=== PATIENT | female | born 1960 | race Two or more races ===

== ENCOUNTER 2025-03-31 05:23 | Day surgery (SDC) | payer OTHER ==
[2025-03-25 12:41] VITALS: BP 119/75
[~2025-03-31] VITALS: Ht 167.6 cm; Wt 63.0 kg
[~2025-03-31 05:23] MED LIST: CLONAZEPAM2 MG PO; ELIQUIS5 MG PO; HORIZANT300 MG PO; LIPITOR40 M1 PO; TOPROL XL50 M1 PO; ZETIA10 MG PO
[2025-03-31] MEDS ORDERED: METRONIDAZOLE/SODIUM CHLORIDE 500 MG/100 ML PIGGYBACK IV ONE (06:53)
[2025-03-31] MEDS ORDERED: DIBUCAINE 30 GM TUBE ONE (07:45)
[2025-03-31] MEDS ORDERED: HEMOSTATIC MATRIX 1 KIT KIT TOP ONE (07:46)
[2025-03-31] MEDS ORDERED: PERCOCET 5-3251 EACH PO (08:10)
[2025-03-31] MEDS ORDERED: RECTICARE30 GM TOP (08:11)
[2025-03-31] MEDS ORDERED: LIDOCAINE HCL 1%/EPINEPHRINE 20ML VIAL IJ ONE (09:30)
[2025-03-31] MEDS ORDERED: BUPIVACAINE HCL/PF 0.25% 30ML VIAL InF ONE (09:30)
[2025-03-31] MEDS ORDERED: POVIDONE-IODINE 118 ML BOTT TOP ONE (09:30)
[2025-03-31] MEDS ORDERED: MORPHINE SULFATE 4 MG/ML VIAL IV ONE (11:20)
[2025-03-31] MEDS ORDERED: TAMSULOSIN HCL 0.4 MG CAP PO ONE ×2 (11:30→11:32)
== END 2025-03-31 18:00 | disposition home or self-care (01) ==
LOC: CIR.AMB 05:23
PROVIDERS: ATTEND Surgery
DX: K64.2 Third degree hemorrhoids (principal); K64.4 Residual hemorrhoidal skin tags; Z88.0 Allergy status to penicillin